=== PATIENT | male | born 1970 | race Caucasian/White ===

== ENCOUNTER 2019-05-13 10:30 | Emergency (ER) | payer OTHER ==
[~2019-05-13] VITALS: Ht 175.3 cm; Wt 77.1 kg
--- OUTSIDE RECORDS SUMMARY | 2019-05-13 10:32 | XMS REPORT | Clinical Summary ---
Author Author [facility] Address Unknown Phone Unavailable Care Team Providers Care Informatica Mdm Architect Name Role Phone Reilly Landaverde MD PCP Allergies Comments Active Allergy Reactions Severity Noted Date Abdominal discomfort Naproxen GI Low 01/17/2017 Intolerance Medications End Date Status Medication Sig Dispensed Refills Start Date Active propranolol (INDERAL) 10 Take 10 mg by 0 MG tablet mouth daily. Active furosemide (LASIX) 20 mg Take 20 mg by 0 tablet mouth daily as needed. Active pantoprazole (PROTONIX) Take 1 tablet 30 tablet 0 40 MG EC tablet (40 mg total) 8 by mouth 2 (two) times a day. 06/28/2018 Discontinued (Med List Cleanup) ranitidine (ZANTAC) 150 Take 150 mg 0 MG tablet by mouth daily as needed for heartburn or indigestion. 07/02/2018 Discontinued (Reorder) pantoprazole (PROTONIX) Take 40 mg by 0 40 MG EC tablet mouth daily. 08/01/2018 acetaminophen-codeine Take 1 tablet 20 tablet 0 (TYLENOL WITH CODEINE #3) by mouth 8 300-30 mg per tablet every 4 (four) hours as needed for moderate pain for up to 30 days. 07/09/2018 ciprofloxacin (CIPRO) 500 Take 1 tablet 14 tablet 0 MG tablet (500 mg 8 total) by mouth 2 (two) times a day for 7 days. Active Problems Problem Noted Date Gastrointestinal hemorrhage 06/28/2018 Portal hypertensive gastropathy 01/18/2017 Alcoholism /alcohol abuse 01/18/2017 Acute upper GI bleed 01/17/2017 Encounters Care Team Description Date Type Specialty 06/29/2018 Travel Bassam Stephen MD 06/28/2018 Anesthesia Gastroenterology Event Abisai Gilbert MD ESOPHAGOGASTRODUODENOSCOPY (EGD) 06/28/2018 Surgery Gastroenterology Geno Desai MD Yerramadha, Muralidhar Reddy, MD Gastrointestinal hemorrhage, unspecified gastrointestinal hemorrhage type (Primary Dx) 06/28/2018 [facility] General Internal Medicine - Encounter 07/02/2018 after 05/12/2018 Family History Medical History Relation Name Comments Heart disease Father Alcohol abuse Maternal Grandfather Cirrhosis Maternal Grandfather Heart disease Maternal Grandmother Anxiety disorder Mother Depression Mother Stroke Mother Lupus Paternal Grandmother Anxiety disorder Sister Depression Sister Relation Name Status Comments Father Maternal Grandfather Maternal Grandmother Mother Paternal Grandmother Sister Social History Date Tobacco Use Types Packs/Day Years Used Never Smoker Smokeless Tobacco: Never Used Tobacco Cessation: Counseling Given: No Drinks/Week oz/Week Comments Alcohol Use Quit 17 months No Alcohol Habits Answer Date Recorded How often do you have a drink containing alcohol? Never 06/28/2018 How many drinks containing alcohol do you have on Not asked a typical day when you are drinking? How often do you have six or more drinks on one Not asked occasion? Sex Assigned at Date Recorded Not on file Industry Job Start Date Occupation Not on file Not on file Not on file Travel End Travel History Travel Start No recent travel history available. Last Filed Vital Signs Reading Time Taken Comments Vital Sign 137/72 07/02/2018 3:23 PM [employer] [facility] Blood Pressure 69 07/02/2018 3:23 PM [employer] Pulse 36.9 C (98.5 F) 07/02/2018 3:23 PM [employer] Temperature 18 07/02/2018 3:23 PM [employer] Respiratory Rate 99% 07/02/2018 3:23 PM [employer] Oxygen Saturation - - Inhaled Oxygen Concentration 81.6 kg (180 lb) 06/28/2018 2:00 PM [employer] Weight 175.3 cm (5' 9") 06/28/2018 2:00 PM [employer] Height 26.58 06/28/2018 2:00 PM [employer] Body Mass Index Plan of Treatment Health Maintenance Due Date Last Done Comments INFLUENZA VACCINE 03/14/2019 Implants Device Identifier Shelf Expiration Date Model / Serial / Lot Implanted Type Area Manufactur er Screw-10/17/1993 Screw Spine Lumbar Implanted: 10/17/1993 (Quantity not on file) Procedures Comments Procedure Name Priority Date/Time Associated Diagnosis MANUAL DIFFERENTIAL Routine 07/02/2018 6:23 AM [employer] ESTIMATED GFR Routine 07/02/2018 6:23 AM [employer] CBC WITH PLATELET AND Routine 07/02/2018 DIFFERENTIAL 6:23 AM [employer] BASIC METABOLIC PANEL Routine 07/02/2018 6:23 AM [employer] US SCROTAL Routine 07/01/2018 3:53 PM [employer] MANUAL DIFFERENTIAL Routine 07/01/2018 5:35 AM [employer] ESTIMATED GFR Routine 07/01/2018 5:35 AM [employer] COMPREHENSIVE METABOLIC Routine 07/01/2018 PANEL 5:35 AM [employer] CBC WITH PLATELET AND Routine 07/01/2018 DIFFERENTIAL 5:35 AM [employer] MANUAL DIFFERENTIAL Routine 06/30/2018 7:07 AM [employer] ESTIMATED GFR Routine 06/30/2018 7:07 AM [employer] CBC WITH PLATELET AND Routine 06/30/2018 DIFFERENTIAL 7:07 AM [employer] BASIC METABOLIC PANEL Routine 06/30/2018 7:07 AM [employer] MANUAL DIFFERENTIAL Timed 06/29/2018 6:00 PM [employer] CBC WITH PLATELET AND Timed 06/29/2018 DIFFERENTIAL 6:00 PM [employer] XR CHEST 1 VW PORTABLE STAT 06/29/2018 6:22 AM [employer] MANUAL DIFFERENTIAL Routine 06/29/2018 4:27 AM [employer] ESTIMATED GFR Routine 06/29/2018 4:27 AM [employer] COMPREHENSIVE METABOLIC Routine 06/29/2018 PANEL 4:27 AM [employer] CBC WITH PLATELET AND Routine 06/29/2018 DIFFERENTIAL 4:27 AM [employer] HEMOGLOBIN & HEMATOCRIT Timed 06/29/2018 2:03 AM [employer] TRANSFUSE RED BLOOD CELLS STAT 06/28/2018 9:45 PM [employer] TRANSFUSE RED BLOOD CELLS STAT 06/28/2018 7:11 PM [employer] ECG 12-LEAD STAT 06/28/2018 4:13 PM [employer] PREPARE RBC Timed 06/28/2018 3:00 PM [employer] PREPARE RBC Timed 06/28/2018 3:00 PM [employer] PREPARE RBC Timed 06/28/2018 3:00 PM [employer] PREPARE RBC Timed 06/28/2018 3:00 PM [employer] ESTIMATED GFR STAT 06/28/2018 3:00 PM [employer] PARTIAL THROMBOPLASTIN STAT 06/28/2018 TIME (PTT) 3:00 PM [employer] TYPE AND SCREEN Timed 06/28/2018 3:00 PM [employer] LIPASE LEVEL STAT 06/28/2018 3:00 PM [employer] COMPREHENSIVE METABOLIC STAT 06/28/2018 PANEL 3:00 PM [employer] PROTHROMBIN TIME WITH INR STAT 06/28/2018 3:00 PM [employer] HC COMPLETE BLD COUNT STAT 06/28/2018 W/AUTO DIFF 3:00 PM [employer] ECG ED PRELIMINARY Routine 06/28/2018 INTERPRETATION 2:15 PM [employer] DE CRITICAL CARE, E/M Routine 06/28/2018 30-74 MINUTES 2:15 PM [employer] after 05/12/2018 Results * Estimated GFR (07/02/2018 6:23 AM [employer]) Only the most recent of 5 results within the time period is included. Estimated GFR >=90 mL/min/1.73 m2 [place] Comment: [facility] rpretation G1 >=90 Normal or high G2 60-89Mildly decreased [id number] Mildly to moderately decreased N3a99-47 Moderately to severely decreased G4 15-29Severely decreased G5 <15Kidney failure The eGFR was calculated using the Chronic Kidney Disease Epidemiology Collaboration (CKD-EPI) equation. Interpretation is based on recommendations of the National Kidney Foundation-Kidney Disease Outcomes Quality Initiative (NKF-KDOQI) published in 2014. Specimen Plasma specimen Performing Organization Address City/[facility] [[email or web address] Phone Number [address] [place] [address] PATHOLOGY AND [facility] MEDICINE [address] * Manual differential (07/02/2018 6:23 AM [employer]) Only the most recent of 5 results within the time period is included. Manual PERFORMED [facility] Neutrophils 66.0 39.0 - 69.0 % [facility] Lymphocytes 22.0 (L) 25.0 - 45.0 % [facility] Monocytes 10.0 0.0 - 10.0 % [facility] Eosinophils 2.0 0.0 - 5.0 % [facility] Basophils 0.0 0.0 - 1.0 % [facility] Metamyelocytes 0 % [facility] Promyelocytes 0 % [facility] Platelet slide Decreased (A) [facility] Anisocytosis Moderate [facility] Polychromasia Few [facility] Tear drop cells Few [facility] Schistocytes Rare [facility] Target cells Few [facility] Ovalocytes Few [facility] Specimen Performing Organization Address [facility] [[email or web address] Phone Number [address] [place] [address] PATHOLOGY AND [facility] MEDICINE [address] * CBC with platelet and differential (07/02/2018 6:23 AM [employer]) Only the most recent of 6 results within the time period is included. WBC 3.35 (L) 4.50 - 11.00 k/uL [facility] RBC 3.49 (L) 4.40 - 6.00 m/uL [facility] HGB 9.2 (L) 14.0 - 18.0 g/dL [facility] HCT 28.8 (L) 41.0 - 51.0 % [facility] MCV 82.5 82.0 - 100.[address] [facility] MCH 26.4 (L) 27.0 - 34.[address] [facility] MCHC 31.9 31.0 - 37.0 g/dL [facility] RDW - SD 56.8 (H) 37.0 - 55.[address] [facility] MPV 10.8 8.8 - 13.[address] [facility] Platelet count 95 (L) 150 - 400 k/uL [facility] Nucleated RBC 0.00 /[address] [facility] Neutrophils 66.0 39.0 - 69.0 % [facility] Lymphocytes 22.0 (L) 25.0 - 45.0 % [facility] Monocytes 10.0 0.0 - 10.0 % [facility] Eosinophils 2.0 0.0 - 5.0 % [facility] Basophils 0.0 0.0 - 1.0 % [facility] Specimen Blood Performing Organization Address City/State/Zipcode Phone Number [facility] [id number] [place] [address] [place] [address] PATHOLOGY AND GENOMIC MEDICINE [address] * Basic metabolic panel (07/02/2018 6:23 AM [employer]) Only the most recent of 2 results within the time period is included. Sodium 140 135 - 148 mEq/L [facility] Potassium 4.0 3.5 - 5.0 mEq/L [facility] Chloride 105 98 - 112 mEq/L [facility] CO2 28 24 - 31 mEq/L [facility] Anion gap 7@ANIO 7 - 15 mEq/L [facility] BUN 7 6 - 20 mg/dL [facility] Creatinine 0.80 0.70 - 1.20 mg/dL [facility] Glucose 115 (H) 65 - 99 mg/dL [facility] Calcium 8.3 8.3 - 10.2 mg/dL [facility] Specimen Plasma specimen Performing Organization Address City/State/Zipcode [place] Number [place] [address] [place] [address] PATHOLOGY AND GENOMIC MEDICINE [facility] [address] [place] [address] [facility] * US Scrotal (07/01/2018 3:53 PM [employer]) Specimen Narrative Performed At EXAMINATION:US SCROTAL [facility] CLINICAL HISTORY:Scrotal painnontraumatic, r o epididymitis COMPARISON:None. TECHNIQUE:Sonographic evaluation of the scrotum. Real-time B mode grayscale, Doppler spectral analysis and Doppler color flow imaging was used to assess testicular vasculature. FINDINGS: RIGHT HEMISCROTUM: The right testicle measures 4.7 cm x 2.6 cm x 3.0 cm. Testicular echogenicity is normal. No intratesticular masses are identified. There is normal color and duplex Doppler flow to the testicle. The right epididymis is enlarged to 1.26 cm. The epididymis is hypervascular. Moderate mildly complex hydrocele on the right. Punctate echogenicity in keeping with a scrotal axel noted. Moderate scrotal skin thickening on the right LEFT HEMISCROTUM: The left testicle measures 3.4 cm x 2.1 cm x 2.7 cm. Testicular echogenicity is normal. No intratesticular masses are identified. There is normal color and duplex Doppler flow. The left epididymis is unremarkable. There is no evidence of hydrocele. Moderate varicocele. IMPRESSION: Right-sided epididymitis with moderate complex hydrocele. Scrotal skin thickening on the right. Homogeneous testicles without evidence of mass. Normal-sized flow to each testicle Moderate varicocele left Punctate scrotal axel right [id number] Procedure Note Hm Interface, Radiology Results Incoming - 07/01/2018 4:56 PM [employer] EXAMINATION: US SCROTAL CLINICAL HISTORY: Scrotal pain nontraumatic, r o epididymitis COMPARISON: None. TECHNIQUE: Sonographic evaluation of the scrotum. Real-time B mode grayscale, Doppler spectral analysis and Doppler color flow imaging was used to assess testicular vasculature. FINDINGS: RIGHT HEMISCROTUM: The right testicle measures 4.7 cm x 2.6 cm x 3.0 cm. Testicular echogenicity is normal. No intratesticular masses are identified. There is normal color and duplex Doppler flow to the testicle. The right epididymis is enlarged to 1.26 cm. The epididymis is hypervascular. Moderate mildly complex hydrocele on the right. Punctate echogenicity in keeping with a scrotal axel noted. Moderate scrotal skin thickening on the right LEFT HEMISCROTUM: The left testicle measures 3.4 cm x 2.1 cm x 2.7 cm. Testicular echogenicity is normal. No intratesticular masses are identified. There is normal color and duplex Doppler flow. The left epididymis is unremarkable. There is no evidence of hydrocele. Moderate varicocele. IMPRESSION: Right-sided epididymitis with moderate complex hydrocele. Scrotal skin thickening on the right. Homogeneous testicles without evidence of mass. Normal-sized flow to each testicle Moderate varicocele left Punctate scrotal axel right [id number] Performing Organization Address City/State/Zipcode Phone Number [facility] [address] [place] [address] * Comprehensive metabolic panel (07/01/2018 5:35 AM [employer]) Only the most recent of 3 results within the time period is included. Sodium 140 135 - 148 mEq/L [facility] Potassium 4.0 3.5 - 5.0 mEq/L [facility] Chloride 106 98 - 112 mEq/L [facility] CO2 25 24 - 31 mEq/L [facility] Anion gap 9@ANIO 7 - 15 mEq/L [facility] BUN 10 6 - 20 mg/dL [facility] Creatinine 0.80 0.70 - 1.20 mg/dL [facility] Glucose 113 (H) 65 - 99 mg/dL [facility] Calcium 8.2 (L) 8.3 - 10.2 mg/dL [facility] Protein 5.2 (L) 6.3 - 8.3 g/dL [place] Comment: [facility] 4.6-7.0 g/dL 1 week 4.4-7.6 g/dL 7 months-1year 5.1-7.3 g/dL 1-2 years5.6-7 .5 g/dL >3 years6.0-8 .0 g/dL 18-150 6.3-8.3 g/dL Albumin 2.6 (L) 3.5 - 5.0 g/dL [facility] A/G ratio 1.0 0.7 - 3.[address] [facility] Alkaline 65 40 - 129 U/L [place] phosphatase [facility] AST 37 10 - 50 U/L [facility] ALT 33 5 - 50 U/L [facility] Total bilirubin 1.5 (H) 0.0 - 1.2 mg/dL [facility] Specimen Plasma specimen Performing Organization Address [facility] [[email or web address] Phone Number [facility] DEPARTMENT OF [address] [place] [address] [place] [address] PATHOLOGY AND GENOMIC MEDICINE [address] [place] [address] [facility] * XR Chest 1 Vw Portable (06/29/2018 6:22 AM [employer]) Specimen Narrative Performed At EXAMINATION:XR CHEST 1 VW PORTABLE [facility] CLINICAL HISTORY:ICU ptstable with no clinical status changes COMPARISON:None available. IMPRESSION: Cardiomediastinal silhouette and pulmonary vasculature are within normal limits. Lungs are clear. No pleural effusion or pneumothorax. Bones are unremarkable. [facility]-[id number] Procedure Note Hm Interface, Radiology Results Incoming - 06/29/2018 6:45 AM [employer] EXAMINATION: XR CHEST 1 VW PORTABLE CLINICAL HISTORY: ICU pt stable with no clinical status changes COMPARISON: None available. IMPRESSION: Cardiomediastinal silhouette and pulmonary vasculature are within normal limits. Lungs are clear. No pleural effusion or pneumothorax. Bones are unremarkable. [id number] Performing Organization Address City/[facility]/Zipcode Phone Number [facility] [address] [place] [address] * Hemoglobin & hematocrit (06/29/2018 2:03 AM [employer]) HGB 8.0 (L) 14.0 - 18.0 g/dL [facility] HCT 24.8 (L) 41.0 - 51.0 % [facility] Specimen Blood Performing Organization Address City/[facility]/Zipcode Phone Number [facility] DEPARTMENT [address] [place] [id number] PATHOLOGY AND [facility] MEDICINE [address] * Transfuse RBC (06/28/2018 9:45 PM [employer]) Only the most recent of 2 results within the time period is included. * ECG 12 lead (06/28/2018 4:13 PM [employer]) Ventricular 91 [facility] rate Atrial rate 91 [facility] DE interval 130 [facility] QRSD interval 76 [facility] QT interval 360 [facility] QTC interval 442 [facility] P axis 1 41 [facility] QRS axis 1 82 [facility] T wave axis 43 [facility] EKG impression Normal sinus rhythm-Normal [facility] ECG-No previous ECGs available- Specimen Narrative Performed At Performing Organization Address [facility] Phone Number [facility] MUSE [address] [place] [address] * Partial thromboplastin time, activated (06/28/2018 3:00 PM [employer]) Pathologist [facility] PTT 33.0 23.0 - 36.0 sec [place] Comment: [facility] Cristian PTT therapeutic range for [facility] unfractionated heparin is 61.0-112.0 seconds which corresponds to Anti-Xa 0.3-0.7 U/ml. Specimen Blood Performing Organization Address [facility] Phone Number [facility] DE[facility] [address] [place] [address] PATHOLOGY AND [facility] MEDICINE [address] * Prothrombin time with INR (06/28/2018 3:00 PM [employer]) Pathologist [facility] Prothrombin 16.0 (H) 11.5 - 14.5 sec [facility] INR 1.3 [place] Comment: VAIBHAV AIKEN The International Normalized [facility] Ratio (INR) is a therapeutic monitoring tool for patients who are stable on oral anticoagulant therapy. An INR of 2.0-3.0 is suggested for deep vein thrombosis/pulmonary embolism. Specimen Blood Performing Organization Address [facility] [[email or web address] Phone Number [address] [place] [address] PATHOLOGY AND [address] * Prepare RBC, 1 Units (06/28/2018 3:00 PM [employer]) Only the most recent of 3 results within the time period is included. Product name Red Blood Cells -1, Leukored [facility] Unit number [id number] [facility] Product code [id number] [facility] Dispense status Transfused [facility] Blood [id number] [place] expiration date [facility] Blood type code [address] [facility] Blood type A POSITIVE [facility] Specimen Performing Organization Address [facility] [[email or web address] Phone Number [address] [place] [address] PATHOLOGY AND [address] * Type and screen (06/28/2018 3:00 PM [employer]) ABO grouping A [facility] Rh type POS [facility] Antibody screen NEG [facility] Specimen Blood Performing Organization Address [facility] Phone Number [address] [place] [address] PATHOLOGY AND [address] * Lipase level (06/28/2018 3:00 PM [employer]) Lipase 29 13 - 60 U/L [facility] Specimen Plasma specimen Performing Organization Address [facility] [[email or web address] Phone Number [address] [place] [address] PATHOLOGY AND [address] * ECG ED Preliminary Interpretation - Not an Order (06/28/2018 2:15 PM [employer]) Narrative Performed At Geno Desai MD 06/28/20184:21 PM ECG ED Preliminary Interpretation - Not an Order Performed by: Geno Desai MD Authorized by: Geno Desai MD Interpretation: Interpretation: normal Rate: ECG rate:91 ECG rate assessment: normal Rhythm: Rhythm: sinus rhythm Ectopy: Ectopy: none QRS: QRS axis:Normal QRS intervals:Normal ST segments: ST segments:Non-specific T waves: T waves: non-specific * CRITICAL CARE (06/28/2018 2:15 PM [employer]) Narrative Performed At Geno Desai MD 06/28/20184:21 PM Critical Care Performed by: Geno Desai MD Authorized by: Geno Desai MD Critical care provider statement: Critical care time (minutes):45 Critical care time was exclusive of:Separately billable procedures and treating other patients Critical care was necessary to treat or prevent imminent or life-threatening deterioration of the following conditions:Shock and circulatory failure Critical care was time spent personally by me on the following activities:Development of treatment plan with patient or surrogate, discussions with consultants, evaluation of patient's response to treatment, examination of patient, ordering and performing treatments and interventions, ordering and review of laboratory studies, ordering and review of radiographic studies, pulse oximetry, re-evaluation of patient's condition and obtaining history from patient or surrogate after 05/12/2018 Advance Directives For more information, please contact: [phone] Patient Ed Case Manager Explanation Type Date Recorded Advance Directives, 01/17/2017 3:01 PM Living Will and Medical Power of Crossing Watchman
[2019-05-13] MEDS ORDERED: IBUPROFEN 200 MG TAB PO STA (10:54)
[2019-05-13] MEDS ORDERED: LIDOCAINE 1% W/EPINEPHRINE 20 ML VIAL INJ STA (10:54)
[2019-05-13] MEDS ORDERED: MUPIROCIN 2% OINT 22 GM TUBE TOP ONE (11:00)
[2019-05-13] MEDS ORDERED: CLONIDINE HCL 0.2 MG TAB PO ONE (11:00)
[2019-05-13] MEDS ORDERED: CLONIDINE HCL 0.1 MG TAB ONE (11:03)
[2019-05-13] MEDS ORDERED: LIDOCAINE 1% W/EPINEPHRINE 20 ML VIAL ONE (11:04)
[2019-05-13] MEDS ORDERED: IBUPROFEN 200 MG TAB ONE (11:04)
[2019-05-13] MEDS ORDERED: BACITRACIN ZINC 0.9GM TP ONE (11:04)
[2019-05-13 12:12] VITALS: BP 136/80
== END 2019-05-13 12:13 | disposition home or self-care (01) ==
LOC: FSED 10:30
DX: S01.412A Laceration without foreign body of left cheek and temporomandibular area, initial encounter (principal); W26.8XXA Contact with other sharp object(s), not elsewhere classified, initial encounter; Y99.0 Civilian activity done for income or pay; I10 Essential (primary) hypertension
CPT/HCPCS: 99284